=== PATIENT | male | born 1990 | race Caucasian/White ===

== ENCOUNTER 2016-08-09 07:23 | Emergency (ER) | payer SELFPAY ==
[~2016-08-09] VITALS: Ht 175.3 cm; Wt 76.5 kg
[~2016-08-09 07:23] MED LIST: IBUP-238 PO
[2016-08-09 07:32] VITALS: BP 119/68; PULSE 83; RESP 16; TEMP 97.6; O2SAT 98
[2016-08-09] MEDS ORDERED: PROPARACAINE HCL 0.5% OPHT SOLN 15 ML BTL RIGHT EYE ONE (08:00)
[2016-08-09] MEDS ORDERED: FLUORESCEIN SOD 1 MG STRIP RIGHT EYE ONE (08:00)
[2016-08-09] MEDS ORDERED: CIPR3.5O RIGHT EYE (08:13)
--- NOTE | 2016-08-09 08:13 | PD ---
HPI Chief Complaint: Eye Problems/Injury Time Seen by Provider: 07:42 Travel History International Travel<30 days: No Contact w/Intl Traveler<30days: No Traveled to known affect area: No History of Present Illness HPI Patient is a 25-year-old male who comes in complaining of right eye pain and redness that started last night. He said he had similar symptoms in his left eye a few days ago, but used some of his daughter's eye drops and that seemed to take care of the problem. He says last night his right eye started to hurt and he was up all night due to the pain. He says he has had a lot of discharge from that eye. He denies any change in his vision. He does wear contact lenses. He denies any trauma to the eye. PFSH Past Medical History Medical History: Denies Significant Hx Diminished Hearing: No Immunizations Current: Yes Past Surgical History Surgical History: No Previous Surgery Social History Alcohol Use: No Tobacco Use: No Substance Use: No Allergies-Medications (Allergen,Severity, Reaction): Coded Allergies: No Known Allergies (Verified , 08/09/16) Reported Meds & Prescriptions Reported Meds & Active Scripts Active Ciloxan Opth Oint (Ciprofloxacin) 0.3% Oint 0.5 Inch RIGHT EYE TID 7 Days Apply 3 times per day for the first two days, then twice a day for five days Review of Systems General / Constitutional: No: Fever, Chills Eyes: Positive: Drainage, Redness, Pain, Tearing, No: Blurred Vision HENT: No: Headaches Respiratory: No: Cough, Shortness of Breath Musculoskeletal: No: Myalgias Skin: No Rash, No Change in Pigmentation Neurologic: No: Weakness, Dizziness Physical Exam Narrative GENERAL: Awake and alert, in no acute distress. SKIN: Focused skin assessment warm/dry. HEAD: Atraumatic. Normocephalic. EYES: Pupils equal and round. No scleral icterus. Injection of the conjunctiva on the right. Extraocular movements intact. ENT: Mucous membranes pink and moist. CARDIOVASCULAR: Regular rate and rhythm. No murmur appreciated. RESPIRATORY: No accessory muscle use. Clear to auscultation. Breath sounds equal bilaterally. NEUROLOGICAL: Awake and alert. No obvious cranial nerve deficits. Motor grossly within normal limits. Normal speech. PSYCHIATRIC: Appropriate mood and affect; insight and judgment normal. Data Data Last Documented VS Vital Signs Date Time Temp Pulse Resp B/P Pulse Ox O2 Delivery O2 Flow Rate FiO2 08/09/16 07:32 97.6 83 16 119/68 98 Orders Fluorescein Strip (Ksqhi-I-Uztaii A.T.) (08/09/16 08:00) Proparacaine 0.5% Opth Soln (Alcaine 0.5 (08/09/16 08:00) MDM Medical Decision Making Medical Screen Exam Complete: Yes Emergency Medical Condition: Yes Medical Record Reviewed: Yes Differential Diagnosis Corneal abrasion versus conjunctivitis versus globe injury Narrative Course Patient is a 25-year-old male comes in complaining of right thigh pain and redness. Fluorescein staining and Navarro lamp exam performed showing a hernial abrasion in the 6:00 area. Patient prescribed Cipro otic, advised to throw his contact lenses away and wear glasses for the next 2 weeks at least and until the infection is completely gone. Advised follow-up with ophthalmology. Advised to return to the ED as needed for any worsening symptoms. Diagnosis Primary Impression: Corneal abrasion Qualified Code: S05.01XA - Corneal abrasion, right, initial encounter Patient Instructions: Corneal Abrasion (ED), General Instructions Additional Instructions: Follow up with ophthalmology. Do not wear contact lenses for at least the next 2 weeks and until the infection is completely cleared. Return to the ED as needed for any worsening symptoms. Scripts Ciprofloxacin Opth Oint (Ciloxan Opth Oint)0.3% Oint0.5 Inch RIGHT EYE TID 7 Days Ref 0 Apply 3 times per day for the first two days, then twice a day for five days Prov:Dara Curtis MD 08/09/16 Disposition: 01 DISCHARGE HOME Condition: Stable Dara Curtis MD August 09, 2016 08:13
== END 2016-08-09 08:29 | disposition home or self-care (01) ==
LOC: PHED 07:23
DX: S05.01XA Injury of conjunctiva and corneal abrasion without foreign body, right eye, initial encounter (principal); X58.XXXA Exposure to other specified factors, initial encounter
CPT/HCPCS: 99283